=== PATIENT | female | born 1960 | race Caucasian/White ===

== ENCOUNTER 2020-03-19 08:33 | Emergency (ER) | payer OTHER, SELFPAY ==
[2020-03-19 08:50] VITALS: BP 153/75; PULSE 67; RESP 18; TEMP 36.4; O2SAT 100
[2020-03-19] MEDS: KETOROLAC 30 MG/ML VIAL (*BKC) IV PUSH (09:13)
[2020-03-19 09:17] VITALS: BP 161/79; PULSE 87; RESP 18; O2SAT 98
--- NOTE | 2020-03-19 09:35 | ED.BACK ---
HPI - Back Pain/Injury General Chief Complaint: Back Pain/Injury Stated Complaint: back pain Time Seen by Provider: 03/19/20 08:40 History of Present Illness HPI Narrative: Patient is a 59-year-old female who presents ER with low back pain and sciatica. This is been a chronic issue for her that is intermittent when it worsens. Began having some discomfort 2 weeks ago but then 1 week ago symptoms significantly increased. She went to [place] urgent care and had an x-ray 3 days ago and was prescribed prednisone and a muscle relaxer. Does not seem to be helping. Reports pain radiates down her right leg and has tingling down to her knee. No foot drop. No saddle anesthesia or difficulty with urination/defecation. Pain is worse when going from sitting to standing and also with lying back. Previously she had been seen by a chiropractor. She has not seen her PCP for this. She is going to see a orthospine physician in 4 days. Related Data Home Medications Medication Instructions Recorded Confirmed methocarbamol [Robaxin-750] 750 mg PO HS 03/19/20 prednisone 1 mg PO DAILY 03/19/20 tramadol 50 mg PO Q4H PRN 03/19/20 Allergies Allergy/AdvReac Type Severity Reaction Status Date / Time Penicillins Allergy Unknown Hives Verified 01/04/20 09:51 Review of Systems Review of Systems: All systems reviewed & are unremarkable except as noted in HPI and below Constitutional: Constitutional: Denies chills, Denies fever(s) and Denies weakness Genitourinary: Genitourinary: Denies nocturia and Denies urinary incontinence Musculoskeletal: Musculoskeletal: Reports back pain, Denies myalgias and Denies arthralgias Neurologic: Denies focal weakness and Reports numbness [facility] Past Medical History Medical History (Updated 03/19/20 @ 10:37 by Kamran Soriano MD) Allergic rhinitis Migraine Normal colonoscopy (~07/2019) Sciatica Surgical History Surgical History H/O shoulder surgery H/O: hysterectomy Social History Social History Smoking status: Never smoker Gender identity (if verbalized by the patient): Female Exam Narrative: Exam Narrative: GENERAL: Well-appearing, well-nourished, and in no acute distress. HEAD: Normocephalic, atraumatic. CHEST: Clear to auscultation. No respiratory distress. HEART: Regular rate and rhythm. Normal peripheral pulses. EXTREMITIES: Normal range of motion. 5 out of 5 strength when performing motor function and strength test at the ankle/knee/hip of right lower extremity. BACK: Mild tenderness over L3-L4 the low back and significant point tenderness over the right sacroiliac region. SKIN: Warm, dry, no rash. NEURO: No focal deficits. Alert and oriented x3. Course Course Emergency Course: Patient received Toradol and Valium with improvement of her pain and tingling going across her right anterior thigh has decreased. Recommend discontinuing ibuprofen and starting naproxen. Keep follow-up with spine physician. Vital Signs Vital signs: Vital Signs Temperature 97.5 F L 03/19/20 08:50 Pulse Rate 67 03/19/20 08:50 Respiratory Rate 18 03/19/20 08:50 Blood Pressure 153/75 H 03/19/20 08:50 Pulse Oximetry 100 03/19/20 08:50 Temperature 97.5 F L 03/19/20 08:50 Pulse Rate 61 03/19/20 10:02 Respiratory Rate 16 03/19/20 10:02 Blood Pressure 150/75 H 03/19/20 10:02 Pulse Oximetry 97 03/19/20 10:02 Discharge Plan Discharge Clinical Impression: Sciatica Patient Disposition: Home, Self-Care Condition: Stable Instructions: Sciatica (ED) Additional Instructions: Return to the ER if you have increased pain in your back, you develop lower extremity weakness/numbness/paralysis, you have numbness or tingling in your private parts, or you are unable to control your ability to urinate/stool. Prescriptions: New naproxen 500 mg tablet
[2020-03-19 10:02] VITALS: BP 150/75; PULSE 61; RESP 16; O2SAT 97
[2020-03-19 11:15] VITALS: BP 150/75; PULSE 58; RESP 16; O2SAT 100
== END 2020-03-19 10:55 | disposition home or self-care (01) ==
PROVIDERS: Emergency Provider Emergency Medicine; PCP Family Medicine
DX: M54.31 Sciatica, right side (principal)
CPT/HCPCS: 96374; 96375; 99284; J1885; J3360

== ENCOUNTER → 2022-03-19 11:08 | Outpatient (CLI) | payer OTHER, SELFPAY ==
--- NOTE | ~2022-03-19 | DEXA_ITS ---
Bone Density Report Name: HARISH VARGHESE Age: 61 Sex: Female Ethnicity: White Date of : 1960 Indication: osteopenia; monitoring treatment; height loss; prior fracture; hysterectomy; postmenopausal Referring Provider: Raymundo, Julieta Study: Bone densitometry was performed. Exam Date: March 19, 2022 Accession number: [id number] Bone Density: Region BMD T-score Z-score Classification AP Spine (L1, L2, L3) 0.881 -1.2 0.3 Osteopenia Femoral Neck (Left) 0.693 -1.4 0.0 Osteopenia Total Hip (Left) 0.798 -1.2 -0.1 Osteopenia Femoral Neck (Right) 0.635 -1.9 -0.5 Osteopenia Total Hip (Right) 0.773 -1.4 -0.3 Osteopenia Total Hip Mean 0.786 -1.3 -0.2 Osteopenia World Health Organization criteria for BMD impression classify patients as: Normal (T-score at or above -1.0), Osteopenia (T-score between -1.0 and -2.5), or Osteoporosis (T-score at or below -2.5). 10-year Fracture Risk: FRAX not reported because: Treated for osteoporosis Previous Exams: Region Exam Age BMD T-score BMD Change BMD Change Date g/cm2 vs Baseline vs Previous AP Spine(L1, L2, L3) 03/19/2022 61 0.881 -1.2 0.065* 0.012 01/03/2019 58 0.869 -1.4 0.053* -0.014 12/29/2016 56 0.883 -1.2 0.067* 0.067* 11/25/2014 54 0.816 -1.8 Total Hip(Left) 03/19/2022 61 0.798 -1.2 0.041* -0.003 01/03/2019 58 0.801 -1.2 0.043* 0.006 12/29/2016 56 0.795 -1.2 0.038* 0.038* 11/25/2014 54 0.757 -1.5 Total Hip(Right) 03/19/2022 61 0.773 -1.4 0.025 -0.011 01/03/2019 58 0.784 -1.3 0.036* 0.001 12/29/2016 56 0.783 -1.3 0.035* 0.035* 11/25/2014 54 0.748 -1.6 *Denotes significance at 95% confidence level, LSC for AP Spine = 0.022 g/cm2, LSC for Total Hip = 0.027 g/cm2 Clinical Information Provided by Patient: Has had a low trauma fracture Is being treated for osteoporosis Has used the following medications: HRT (i.e. estrogen/hormone therapy), Vitamin D, MTV Has the following medical conditions: Hysterectomy Patient maximum height was 67.0 Menopause Age: 29 Drinks caffeinated beverages Onset of menses at age 14 Number of children 2 Impression: The patient has low bone mass, based on the Right Femoral Neck T-score. The patient has risk factors, including: previous fracture. No significant
== END ==
PROVIDERS: PCP Family Medicine; Visit Provider Nurse Practitioner
DX: Z13.820 Encounter for screening for osteoporosis (principal); M85.88 Other specified disorders of bone density and structure, other site; M85.852 Other specified disorders of bone density and structure, left thigh; M85.851 Other specified disorders of bone density and structure, right thigh
CPT/HCPCS: 77080